=== PATIENT | male | born 1925 | race Caucasian/White ===

== ENCOUNTER 2016-11-10 16:58 | Inpatient (IN) | payer OTHER ==
[~2016-11-10] VITALS: Ht 162.6 cm; Wt 59.0 kg
[2016-11-10] MEDS ORDERED: NABU500T3 PO (17:39)
[2016-11-10] MEDS ORDERED: ESCI10TA PO ×2 (17:39→21:47)
[2016-11-10] MEDS ORDERED: BUPR300T54 PO ×2 (17:39→21:47)
[2016-11-10] MEDS ORDERED: QUET25TA PO ×2 (17:39→21:47)
[2016-11-10] MEDS ORDERED: ATOR10TA PO ×2 (17:39→21:47)
[2016-11-10] MEDS ORDERED: HYDR-3326 PO (17:40)
[2016-11-10] MEDS ORDERED: LORA0.5T PO (17:40)
[2016-11-10] MEDS ORDERED: DOCU-270 PO (17:48)
[2016-11-10] MEDS ORDERED: [UNRECOGNIZED DRUG - CODE] PO (17:48)
[2016-11-10] MEDS ORDERED: CHOL100044 PO (17:48)
[2016-11-10] MEDS ORDERED: ASPI81TA2 PO (17:48)
[2016-11-10] MEDS ORDERED: MAGN400O6 PO (17:48)
[2016-11-10] MEDS ORDERED: MAGNESIUM HYDROXIDE 30 ML UDC PO PRN (18:30)
[2016-11-10] MEDS ORDERED: MAG HYDROX/AL HYDROX/SIMETH 30 ML UDC PO PRN (18:30)
[2016-11-10] MEDS ORDERED: ACETAMINOPHEN 325 MG TABLET PO PRN (18:30)
[2016-11-10] MEDS ORDERED: ZOLPIDEM TARTRATE 5 MG TABLET PO PRN (18:30)
--- NOTE | 2016-11-10 19:03 | NUR ---
ADMITTED NOTES THIS 89Y/O MALE ADMITTED FROM [facility] PT. IS ON 5150 HOLD , PT IS A/0 X 2 ,PT UNCOOPERATIVE COMBATIVE AGGRESSIVE, PT REFUSED SKIN /BODY ASSESSMENT. ON VISUAL PART OF BODY LEFT ARM DISCOLORATION NOTED, PICTURE TAKEN, UNABLE TO PROCEED WITH THE PHOTOS OF OTHER SKIN PROBLEMS, PATIENT BECAME COMBATIVE AND TRIED TO HIT AND KICK THE STAFF. CONTRABAND CHECK DONE, SAFE ENVIRONMENT PROVIDED ,WILL CONTINUE TO MONITOR FOR SAFETY AND BEHAVIOR .
--- NOTE | 2016-11-10 19:23 | NUR ---
DR. ARSHAD NOTIFIED OF THE NEW ADMISSION NEW ORDERS RECEIVED AND CARRIED OUT. PT REFUSED MRSA SWAB
--- NOTE | 2016-11-10 19:39 | NUR ---
GPS/RN NOTE: PATIENT SITTING ON THE DAVID-CHAIR, ANGRY, AGGRESSIVE, NO VERBAL RESPONSE WHEN ENGAGED. O APPARENT DISTRESS NOTED. REFUSED SKIN ASSESSMENT AND VITALS. AT THSI TIME.
[2016-11-10 19:43] VITALS: BP 113/76
--- NOTE | 2016-11-10 19:53 | NUR ---
GPS/RN NOTE: FRIEND CHRISTINE FOR MANY YEARS WAS NOTIFIED OF ADMISSION. SHE SAID THAT DAVID HAS BEEN USING [facility] FOR 15 YEARS. PATIENT REFUSED MRSA SCREEN DONE.
[2016-11-10 20:00] VITALS: BP 128/80
[2016-11-10] MEDS ORDERED: ASPI-991 PO (21:47)
[2016-11-10] MEDS ORDERED: ENOX40DI9 SQ (21:47)
[2016-11-10] MEDS ORDERED: ACET325T53 PO (21:47)
--- NOTE | 2016-11-10 21:57 | NUR ---
GPS/RN NOTE: PAGED DR. SHOEMAKER FOR MED RECON.
--- NOTE | 2016-11-11 01:25 | NUR ---
GPS/RN NOTE: DR. BARTON SAID THAT MED RECON WILL BE DONE IN THE MORNING
--- NOTE | 2016-11-11 01:59 | NUR ---
GPS//RN NOTE: PATIENT SWEATY, ACCUCHECK DONE 149 MG/DL. OFFERED ORANGE JUICE AND JELLO
[2016-11-11 08:00] VITALS: BP 150/96
[2016-11-11] MEDS ORDERED: Medication Not On Formulary EA (Acetaminophen (Acetaminophen Er) 650 MG) PO PRN (12:30)
[2016-11-11] MEDS ORDERED: MAGNESIUM HYDROXIDE 30 ML UDC PO PRN (12:30)
[2016-11-11] MEDS ORDERED: HYDROCODONE/APAP 5/325MG 1 EACH TABLET PO PRN (12:30)
[2016-11-11] MEDS ORDERED: NABUMETONE 500 MG TABLET PO PRN (12:30)
[2016-11-11 13:34] LABS: ALBUMIN 4.3 g/dL (3.4-5.0); BILIRUBIN,TOTAL 0.4 mg/dL (0.2-1.0); CREATININE 1.9 mg/dL (0.6-1.3); POTASSIUM 5.2 mmol/L (3.5-5.1)
[2016-11-11 16:00] VITALS: BP 149/97
--- NOTE | 2016-11-11 17:00 | NUR ---
PATIENT'S K= LEVEL IS 5.2 , NOTIFIED DR SHOEMAKER, PER MD NO ORDER, AND CONTINUE MONITOR, ENDORSED ONCOMING NURSE FOR CONTINUATION OF CARE.
[2016-11-11] MEDS ORDERED: Z GUARD REMEDY 2 OZ OINT TP PRN ×2 (17:30)
[2016-11-11] MEDS: QUETIAPINE FUMARATE 25 MG TABLET PO SCH ×2 (18:12→22:00)
--- NOTE | 2016-11-11 19:52 | NUR ---
GPS/RN NOTE: PATIENT IS AT THE DINING ROOM, SITTING ON THE SOFÍA-CHAIR. NO S/S OF ANY DISCOMFORT. BREATHING NON-LABORED.
[2016-11-11 20:03] VITALS: BP 111/70
--- NOTE | 2016-11-11 23:48 | NUR ---
GPS/RN NOTE: SEROQUEL 25 MG TAB PO GIVEN.
[2016-11-12 08:00] VITALS: BP 110/62
[2016-11-12] MEDS: CHOLECALCIFEROL 1,000 UNIT TABLET (VIT D3) PO SCH (09:37)
[2016-11-12] MEDS: ASPIRIN 81 MG TAB.CHEW PO SCH (09:37)
[2016-11-12] MEDS: BUPROPION XL 150 MG TAB.ER.24 PO SCH (09:37)
[2016-11-12] MEDS: QUETIAPINE FUMARATE 25 MG TABLET PO SCH ×3 (09:37→21:43)
[2016-11-12] MEDS: ATORVASTATIN 10 MG TABLET PO SCH (09:38)
[2016-11-12] MEDS: DOCUSATE SODIUM 100 MG CAPSULE PO SCH (09:39)
[2016-11-12 16:18] VITALS: BP 103/69
--- NOTE | 2016-11-12 19:30 | NUR ---
GPS/RN NOTE: Received up on a wheelchair, awake, alert, confused. calm. No apparent respiratory distress noted. Able to wheel himself back and forth his room and the dining area.
[2016-11-12 19:50] VITALS: BP 99/63
[2016-11-13 08:00] VITALS: BP 100/55
[2016-11-13] MEDS: ATORVASTATIN 10 MG TABLET PO SCH (08:38)
[2016-11-13] MEDS: DOCUSATE SODIUM 100 MG CAPSULE PO SCH (08:38)
[2016-11-13] MEDS: CHOLECALCIFEROL 1,000 UNIT TABLET (VIT D3) PO SCH (08:38)
[2016-11-13] MEDS: BUPROPION XL 150 MG TAB.ER.24 PO SCH (08:38)
[2016-11-13] MEDS: QUETIAPINE FUMARATE 25 MG TABLET PO SCH ×4 (08:38→21:41)
[2016-11-13] MEDS: ASPIRIN 81 MG TAB.CHEW PO SCH (08:38)
--- NOTE | 2016-11-13 11:54 | NUR ---
Initial Discharge Plan: Patient was residing at The [address] [address] [phone]. supervisor hand workers spoke with patient's friend/DPOA Ruddy Navarro ([phone]) who stated that patient was in the process of moving in with two caregivers. supervisor hand workers will follow-up with Md, family, and patient regarding most appropriate discharge plan and will help form a safe and proper discharge. supervisor hand workers will provide patient with substance abuse referrals upon discharge.
--- NOTE | 2016-11-13 14:50 | NUR ---
UR Update: Gun Numberer faxed clinicals (face sheet, Med H&P, Psych H&P, 5150 hold, med list) to Aj and Hawk Portillo from [facility] (fax: [phone]/ ) Auth#[id number].
[2016-11-13 16:00] VITALS: BP 105/68
[2016-11-13 19:53] VITALS: BP 128/70
[2016-11-13] MEDS: LORAZEPAM 0.5 MG TABLET PO PRN (21:42)
[2016-11-14 08:00] VITALS: BP 104/67
--- NOTE | 2016-11-14 08:43 | NUR ---
Reviewed psychosocial assessment done by Enid Lau. Addendum: 11/14/16 at 0844 by HANDY COHN Amended: Links added.
[2016-11-14] MEDS: ATORVASTATIN 10 MG TABLET PO SCH ×2 (09:00→09:07)
[2016-11-14] MEDS: CHOLECALCIFEROL 1,000 UNIT TABLET (VIT D3) PO SCH ×2 (09:00→09:07)
[2016-11-14] MEDS: ASPIRIN 81 MG TAB.CHEW PO SCH ×2 (09:00→09:07)
[2016-11-14] MEDS: BUPROPION XL 150 MG TAB.ER.24 PO SCH ×2 (09:00→09:07)
[2016-11-14] MEDS: DOCUSATE SODIUM 100 MG CAPSULE PO SCH ×2 (09:00→09:07)
[2016-11-14] MEDS: QUETIAPINE FUMARATE 25 MG TABLET PO SCH ×4 (09:07→21:13)
--- NOTE | 2016-11-14 15:22 | NUR ---
UR Update: Account Auditor faxed updated clinicals (Psych progress notes and med list) to Aj and Hawk Portillo from [employer] [facility] (fax: [phone]/ ) Auth#[id number]
[2016-11-14 16:00] VITALS: BP 142/68
--- NOTE | 2016-11-14 20:09 | NUR ---
RECEIVED PATIENT LAYING DOWN IN BED , AWAKE ,AGGRESSIVE,SARCASTIC , UNCOOPERATIVE UNBECOMING BEHAVIOR AND REFUSED V/S TO BE TAKEN OFFERED X 3. NO S/S OF ACUTE DISTRESS NOTED.PATIENT NEEDS CONSTANT REDIRECTION.WILL CONTINUE TO MONITOR Q15 MIN ROUNDS FOR SAFETY.
--- NOTE | 2016-11-14 21:14 | NUR ---
PATIENT REFUSED HIS SCHEDULED HS SEROQUEL 50 MG PO.OFFERED X 3 AND GAVE NO RESPONSE TO THE STAFFS.FLAT AFFECT AND UNCOOPERATIVE. WILL CONTINUE TO MONITOR Q15 MIN ROUNDS FOR SAFETY.
[2016-11-15] MEDS: LORAZEPAM 0.5 MG TABLET PO PRN (05:55)
[2016-11-15 06:22] VITALS: BP 122/87
--- NOTE | 2016-11-15 06:23 | NUR ---
patient was noted very anxious,resltkless stating "please let me .....oplease let me ..."patient was given Ativan 1 mg PO as ordered.The medication given was effective.WW=014/87,OK=98,RR=18 ,O2 sat 98%.No s/s of acute distress noted.Will continue to monitor q15 min rounds for safety.
[2016-11-15 06:52] LABS: BASOPHILS # (AUTO) 0.2 /CMM (0.0-0.2); BASOPHILS % (AUTO) 2.4 % (0.0-2.0); EOSINOPHILS # (AUTO) 0.2 /CMM (0.0-0.7); EOSINOPHILS % (AUTO) 2.5 % (0.0-6.0); HEMATOCRIT 39 % (39-51); HEMOGLOBIN 12.6 g/dL (13.5-17.5); LYMPHOCYTES % (AUTO) 23.7 % (20.0-44.0); MEAN CORPUSCULAR HEMOGLOBIN 31 PG (26.0-33.0); MEAN CORPUSCULAR HGB CONC 32 g/dl (31.0-36.0); MEAN CORPUSCULAR VOLUME 94 fL (80-96); MONOCYTES # (AUTO) 1.1 /CMM (0.1-1.30); MONOCYTES % (AUTO) 12.8 % (2.0-12.0); NEUTROPHILS # (AUTO) 4.9 /CMM (1.8-8.9); NEUTROPHILS % (AUTO) 58.6 % (43.0-81.0); PLATELET COUNT (AUTO) 440 /CMM (150-450); RDW COEFFICIENT OF VARIATION 14.7 (11.5-15.0); RED BLOOD CELL COUNT(AUTO) 4.14 MIL/uL (4.5-6.0); WHITE BLOOD COUNT (AUTO) 8.3 K/uL (4.3-11.0)
[2016-11-15 07:05] LABS: CALCIUM, SERUM 9.3 mg/dL (8.5-10.1); CREATININE 1.6 mg/dL (0.6-1.3); MAGNESIUM 1.8 mg/dL (1.8-2.4); PHOSPHORUS 3.7 mg/dL (2.5-4.9); POTASSIUM 4.1 mmol/L (3.5-5.1)
[2016-11-15 08:00] VITALS: BP 106/60
[2016-11-15] MEDS: ASPIRIN 81 MG TAB.CHEW PO SCH (08:47)
[2016-11-15] MEDS: ATORVASTATIN 10 MG TABLET PO SCH (08:47)
[2016-11-15] MEDS: QUETIAPINE FUMARATE 25 MG TABLET PO SCH ×4 (08:47→21:15)
[2016-11-15] MEDS: BUPROPION XL 150 MG TAB.ER.24 PO SCH (08:47)
[2016-11-15] MEDS: CHOLECALCIFEROL 1,000 UNIT TABLET (VIT D3) PO SCH (08:47)
[2016-11-15] MEDS: DOCUSATE SODIUM 100 MG CAPSULE PO SCH (08:47)
--- NOTE | 2016-11-15 11:55 | NUR ---
GPS RN NOTE: REPORT GIVEN TO DR CINTRON OF PATIENT CONDITION AND LAB RESULT NO NEW ORDERS AT THIS TIME WILL CONTINUE MONITORING
--- NOTE | 2016-11-15 12:46 | NUR ---
WOUND CARE CONSULT: PT PRESENTS AMBULATORY WITH RT LATERAL LOWER LEG STERI STRIPS IN PLACE. RECOMMEND KEEPING STERI STRIPS IN PLACE. WILL SEE PRN. IN AGREEMENT WITH PLAN OF CARE.
--- NOTE | 2016-11-15 13:44 | NUR ---
UR Update: Stiff Leg Operator faxed updated clinicals (Psych progress notes and med list) to Aj and Hawk Portillo from [employer] [facility] (fax: [phone]/ ) Auth#[id number]
--- NOTE | 2016-11-15 14:33 | NUR ---
submarine worker spoke to Patient's DPOA Ruddy Navarro ([phone]) who stated that patient would be living with two caregivers Winsome and Zulay . submarine worker will follow-up with caregivers to confirm.
[2016-11-15 16:00] VITALS: BP 102/66
--- NOTE | 2016-11-15 16:30 | NUR ---
GPS RN NOTE: PATIENT NONCOOPERATIVE UNABLE TO COLLECT URIN SPECIMEN WILL INDORSE TO INCOMING SHIFT NURSE
[2016-11-15 20:17] VITALS: BP 117/68
[2016-11-16 08:00] VITALS: BP 109/66
[2016-11-16] MEDS: DOCUSATE SODIUM 100 MG CAPSULE PO SCH (09:00)
[2016-11-16] MEDS: ATORVASTATIN 10 MG TABLET PO SCH (09:00)
[2016-11-16] MEDS: CHOLECALCIFEROL 1,000 UNIT TABLET (VIT D3) PO SCH (09:00)
[2016-11-16] MEDS: ASPIRIN 81 MG TAB.CHEW PO SCH (09:00)
[2016-11-16] MEDS: QUETIAPINE FUMARATE 25 MG TABLET PO SCH ×4 (09:10→21:46)
[2016-11-16] MEDS: BUPROPION XL 150 MG TAB.ER.24 PO SCH (09:10)
--- NOTE | 2016-11-16 14:29 | NUR ---
LALIT spoke with DPOA Ruddy Navarro ([phone]) who agreed to take pt. back home as it was confirmed by psychiatrist that with a 24 hour care it would be possible to have him at home at this point. LALIT informed Ruddy about possibility of pt. needing dedicated intermodal truck driver care and recommended to dis-enroll from HMO and enroll back into straight medicare once pt. has medical. Ruddy appreciated the information. Per Ruddy, pt's caregivers Winsome and Zulay should be notified that discharge will happen on Sunday and to arrange time for tow picker. SW will follow up
[2016-11-16 16:00] VITALS: BP 101/63
[2016-11-17] MEDS: ASPIRIN 81 MG TAB.CHEW PO SCH (08:46)
[2016-11-17] MEDS: ATORVASTATIN 10 MG TABLET PO SCH (08:47)
[2016-11-17] MEDS: CHOLECALCIFEROL 1,000 UNIT TABLET (VIT D3) PO SCH (08:47)
[2016-11-17] MEDS: DOCUSATE SODIUM 100 MG CAPSULE PO SCH (08:47)
[2016-11-17] MEDS: BUPROPION XL 150 MG TAB.ER.24 PO SCH (08:47)
[2016-11-17] MEDS: QUETIAPINE FUMARATE 25 MG TABLET PO SCH ×3 (08:47→16:23)
[2016-11-17 11:48] LABS: BASOPHILS % (AUTO) 0.6 % (0.0-2.0); EOSINOPHILS # (AUTO) 0.2 /CMM (0.0-0.7); EOSINOPHILS % (AUTO) 2.7 % (0.0-6.0); HEMATOCRIT 37 % (39-51); HEMOGLOBIN 11.9 g/dL (13.5-17.5); LYMPHOCYTES # (AUTO) 1.4 /CMM (0.8-4.8); LYMPHOCYTES % (AUTO) 21.2 % (20.0-44.0); MEAN CORPUSCULAR HEMOGLOBIN 30 PG (26.0-33.0); MEAN CORPUSCULAR HGB CONC 32 g/dl (31.0-36.0); MEAN CORPUSCULAR VOLUME 93 fL (80-96); MONOCYTES # (AUTO) 0.8 /CMM (0.1-1.30); MONOCYTES % (AUTO) 12.1 % (2.0-12.0); NEUTROPHILS # (AUTO) 4.1 /CMM (1.8-8.9); NEUTROPHILS % (AUTO) 63.4 % (43.0-81.0); PLATELET COUNT (AUTO) 426 /CMM (150-450); RDW COEFFICIENT OF VARIATION 15.1 (11.5-15.0); RED BLOOD CELL COUNT(AUTO) 3.95 MIL/uL (4.5-6.0); WHITE BLOOD COUNT (AUTO) 6.5 K/uL (4.3-11.0)
[2016-11-17 12:09] LABS: CALCIUM, SERUM 9.1 mg/dL (8.5-10.1); CREATININE 1.5 mg/dL (0.6-1.3); MAGNESIUM 1.8 mg/dL (1.8-2.4); PHOSPHORUS 3.4 mg/dL (2.5-4.9); POTASSIUM 5.2 mmol/L (3.5-5.1)
--- NOTE | 2016-11-17 15:38 | NUR ---
LALIT spoke with DPYESENIA Navarro ([phone]) to inform him that patient was being discharged today. AGGIE would have preferred for patient to be discharged Sunday. However, per psychiatrist patient no longer met criteria to stay in the unit. AGGIE Navarro agreed for patient to be transported home [address], [address]. Per Ruddy, pt's caregivers Winsome and Zulay will be home to greet the patient.
[2016-11-17 16:03] VITALS: BP 117/86
--- NOTE | 2016-11-17 16:43 | NUR ---
wire preparation worker spoke to SHELIA ([phone]) supportive employment case manager from [facility] regarding a follow-up appointment. Patient has a follow-up appintment with Dr. Fernandez December 12, 2016 at 11:00am [facility] [place] [address] . wire preparation worker also provided patient with referrals to [facility] ([phone]) [address], [place] [address].
--- NOTE | 2016-11-17 18:35 | NUR ---
GPS RN: PATIENT DISCHARGED HOME (SEE NOTES FOR DETAILS). PATIENT CONDITION IS STABLE FOR DISCHARGE, VS STABLE. PATIENT DENIES ANY SI/HI/AVH AT THE TIME OF DISCHARGE. ALL BELONGINGS RETURNED TO THE PATIENT. EDUCATIONAL EXIT CARE PRINTED, SIGNED AND PROVIDED TO THE PATIENT ALONG WITH MEDICATION PRESCRIPTION. PATIENT LEFT THE UNIT AT THIS TIME, IN THE WHEELCHAIR ACCOMPANIED BY CLAY CLAY ([phone]).
--- NOTE | 2016-11-20 12:27 | NUR ---
Discharge Note: Patient was discharged home [address], [address] with two caregivers Winsome and Zulay . Via [employer]. Patient's DPOA Ruddy Juliennerachel ([phone]) was notified. Patient's mood and affect were appropriate upon discharge. Patient denied suicidal/ Homicidal ideations. Patient has a follow-up appointment with with Dr. Fernandez December 12, 2016 at 11:00am office located at [address] [place] [phone] . drop board worker also provided patient with referrals to [facility] ([phone]) [address], [place] [address]. Facilitated info to IDT team who are in agreement with discharge arrangement. The multidisciplinary exitcare form was done, printed, signed, and given to the patient.
== END 2016-11-17 18:30 | disposition home or self-care (01) | DRG 885 ==
LOC: GPS 16:58
PROVIDERS: ADMIT Psychiatry & Neurology Psychiatry; ATTEND Family Medicine
DX: F29 Unspecified psychosis not due to a substance or known physiological condition (principal); N17.0 Acute kidney failure with tubular necrosis; N18.9 Chronic kidney disease, unspecified; F03.91 Unspecified dementia, unspecified severity, with behavioral disturbance; R45.851 Suicidal ideations; E78.5 Hyperlipidemia, unspecified; E87.5 Hyperkalemia; F03.90 Unspecified dementia, unspecified severity, without behavioral disturbance, psychotic disturbance, mood disturbance, and anxiety; F32.9 Major depressive disorder, single episode, unspecified; I12.9 Hypertensive chronic kidney disease with stage 1 through stage 4 chronic kidney disease, or unspecified chronic kidney disease; Z85.118 Personal history of other malignant neoplasm of bronchus and lung; Z86.73 Personal history of transient ischemic attack (TIA), and cerebral infarction without residual deficits; Z79.899 Other long term (current) drug therapy; Z73.6 Limitation of activities due to disability; R74.0 Nonspecific elevation of levels of transaminase and lactic acid dehydrogenase [LDH]
CPT/HCPCS: 36415; 80048-TC; 80053-TC; 80061-TC; 82962-TC; 83735-TC; 84100-TC; 85025-TC; 97001-TC; 97116-TC; 97530-TC